=== PATIENT | male | born 1985 | race Caucasian/White ===

== ENCOUNTER 2019-01-08 10:50 | Emergency (ER) | payer SELFPAY ==
[~2019-01-08] VITALS: Ht 182.9 cm; Wt 81.6 kg
[~2019-01-08 10:50] MED LIST: CLON1TAB36 GT; CLON1TAB36 PO; FAMO20TA5 PO; SULF1TAB38 PO; TRM50T PO
[2019-01-08] MEDS ORDERED: LIDOCAINE 2% VISCOUS 15 ML UDC MM ONE (11:00)
--- NOTE | 2019-01-08 11:03 | ED EENT ---
History of Present Illness General Stated Complaint: DENTAL PAIN Source: patient Exam Limitations: no limitations History of Present Illness Date Seen by Provider: January 08, 2019 Time Seen by Provider: 11:01 Initial Comments To ER with bilateral upper dental pain for the past few days. He's already on amoxicillin he states. He is taking Tylenol for pain without much relief. States he has a dentist appointment in [place] in a few weeks. Timing/Duration: gradual Severity: moderate Location: dental Prearrival Treatment: over the counter meds, prescription meds Associated Symptoms: tooth pain Allergies and Home Medications Allergies Coded Allergies: No Known Drug Allergies (Unverified , 01/09/12) Home Medications Clonazepam 1 Mg Tablet, 2 MG GT QID, (Reported) Famotidine 20 Mg Tablet, 1 EACH PO BID Prescribed by: ANTONIA CAMARA on 09/21/13 0432 Patient Home Medication List Home Medication List Reviewed: Yes Review of Systems Review of Systems Constitutional: see HPI Eyes: No Symptoms Reported Ears: No Symptoms Reported Nose: no symptoms reported Mouth: see HPI, pain Throat: no symptoms reported Respiratory: no symptoms reported Cardiovascular: no symptoms reported Musculoskeletal: no symptoms reported Skin: no symptoms reported Neurological: No Symptoms Reported Hematologic/Lymphatic: No Symptoms Reported Immunological/Allergic: no symptoms reported Past Mojvdaw-Zuqwxr-Zmhzeb Hx Patient Social History Recent Foreign Travel: No Contact w/Someone Who Travel: No Immunizations Up To Date Tetanus Booster (TDap): Less than 5yrs Date of Pneumonia Vaccine: Jul 04, 2013 Date of Influenza Vaccine: Jul 04, 2013 Past Medical History Reproductive Disorders: No Sexually Transmitted Disease: No HIV/AIDS: No Anxiety Adverse Reaction/Blood Tranf: No Physical Exam Height, Weight, BMI Height: '" Weight: 150lbs. oz. 68.778929lz; BMI Method:Stated General Appearance: WD/WN, no apparent distress Eyes: bilateral eye normal inspection, bilateral eye PERRL, bilateral eye EOMI Ears: bilateral ear auricle normal, bilateral ear canal normal, bilateral ear TM normal Mouth/Throat: normal mouth inspection, pharynx normal, other (no fluctuant abscess) Neck: non-tender, full range of motion; No lymphadenopathy (R), No lymphadenopathy (L) Respiratory: chest non-tender, lungs clear, normal breath sounds Neurologic/Psychiatric: alert, normal mood/affect, oriented x 3 Skin: normal color, warm/dry Progress/Results/Core Measures Results/Orders My Orders Orders - JADE GRAHAM APRN Lidocaine 2% Viscous 15 Ml (Xylocaine Vi (01/08/19 11:00) Departure Communication (Admissions) No facial swelling, no abscess, he states that he is only been taking Tylenol for pain. Failed to mention that 2 days ago he was prescribed oxycodone 7.5 mg tablets out of [place]. I made an appointment for him with [facility] tomorrow at 1 PM Impression Primary Impression: Pain, dental Disposition: HOME, SELF-CARE Condition: Stable Departure-Patient Inst. Decision time for Depature: 11:05 Referrals: [facility] (PCP/Family) Primary Care Physician Patient Instructions: Fractured Tooth (DC) Add. Discharge Instructions: 1. Make an appointment for you with [facility] on and [place] tomorrow at 1 PM. 2. Once you run out of the oxycodone your prescribed 2 days ago, use Tylenol and Motrin. He should also use the topical lidocaine gel that we've provided here in the emergency room. Continue to take antibiotics. Do not miss the appointment tomorrow. JADE GRAHAM APRN January 08, 2019 11:03
[2019-01-08 11:10] VITALS: BP 140/91
--- OUTSIDE RECORDS SUMMARY | 2019-01-08 11:25 | XMS REPORT ---
Author Author Migration, Doctor Organization [facility] Address Unknown Phone Unavailable Care Team Providers Care Manager Research And Development Name Role Phone Migration, Doctor Unavailable Unavailable PROBLEMS Type Condition ICD9-CM Code [id number] Code Onset Dates Condition Status SNOMED Code Problem Anxiety state, unspecified 300.00 Active 495765940 Problem Mood disorder F39 Active 72213328 Problem Abdominal pain, unspecified site 789.00 Active 68216759 Problem Loss of weight 783.21 Active 625373611 Problem Other malaise and fatigue 780.79 Active 368537343 Problem 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 56583803 ALLERGIES No Information ENCOUNTERS Encounter Location Date Diagnosis [facility] [id number] [place] [address]881- 8191 Jul, Mood disorder F39 [facility] [id number] [place] [address] 86557- 2131 14 Dec, 2014 [facility] [id number] [place] [address] 56225- 8246 Dec, [facility] [id number] [place] [address] 77875- 5495 15 Oct, 2012 [facility] [id number] [place] [address] 96204- 4214 Jun, [facility] [id number] [place] [address] 31582- 6879 Jun, [facility] [id number] [place] [address] 25464- 3066 May, [facility] [id number] [place] [address] 99893- 4711 May, [facility] [id number] [place] [address] 33501- 3383 May, [facility] [place] [facility] [address] [id number] [place] [address] 7416 Apr, [facility] [place] [facility] [address] [id number] [place] [address] 7656 Apr, [facility] [place] [facility] [address] [id number] [place] [address] 5786 Apr, [facility] [place] [facility] [address] [id number] [place] [address] 5303 Apr, [facility] [place] [facility] [address] [id number] [place] [address] 7357 Mar, [facility] [place] [facility] [address] [id number] [place] [address] 1113 Mar, [facility] [place] [facility] [address] [id number] [place] [address] 5069 Feb, [facility] [place] [facility] [address] [id number] [place] [address] 5981 Feb, [facility] [place] [facility] [address] [id number] [place] [address] 1532 January, [facility] [place] [facility] [address] [id number] [place] [address] 1066 January, [facility] [place] [facility] [address] [id number] [place] [address] 7109 Dec, [facility] [place] [facility] [address] [id number] [place] [address] 2546 Nov, [facility] [place] [facility] [address] [id number] [place] [address] 2543 Nov, [facility] [place] [facility] [address] [id number] [place] [address]- 1266 Oct, [facility] [place] [facility] [address] [id number] [place] [address] 2546 Sep, [facility] [place] [facility] [address] [id number] [address] 9364 16 Sep, 2011 [facility] [place] [facility] [address] [id number] [place] [address]- 5342 Sep, [facility] [place] [facility] [address] [id number] [place] [address] Sep, [facility] [place] [facility] [address] [id number] [place] [address]- 3387 Aug, [facility] [place] [facility] [address] [id number] [place] [address] 6647 Aug, [facility] [place] [facility] [address] [id number] [place] [address]- 0989 Jul, [facility] [place] [facility] [address] [id number] [place] [address]- 9120 Jul, [facility] [place] [facility] [address] [id number] [place] [address]- 8980 Jun, [facility] [place] [facility] [address] [id number] [place] [address]- 9221 Jun, [facility] [place] [facility] [address] [id number] [place] [address]- 3929 Jun, [facility] [place] [facility] [address] [id number] [place] [address]- 0863 January, [facility] [place] [facility] [address] [id number] [place] [address] 5864 Aug, [facility] [place] [facility] [address] [id number] [place] [address]- 1809 Aug, [facility] [place] [facility] [address] [id number] [place] [address]- 2806 Jul, [facility] [place] [facility] [address] [id number] [place] [address] Jul, [facility] [place] [facility] [address] [id number] [place] [address]- 2642 Jun, [facility] [place] [facility] [address] [facility] [id number] [place] [address]- 2546 15 May, 2010 [facility] [address] [address] 8276 Aug, [facility] [address] [id number] [address] 2546 Jul, [facility] [address] [address] 7605 Jul, [facility] [address] [id number] [address] 2698 Jun, IMMUNIZATIONS No Known Immunizations SOCIAL HISTORY Never Assessed REASON FOR VISIT EMR-[facility] PLAN OF CARE VITAL SIGNS MEDICATIONS Unknown Medications RESULTS No Results PROCEDURES No Known procedures INSTRUCTIONS MEDICATIONS ADMINISTERED No Known Medications
--- OUTSIDE RECORDS SUMMARY | 2019-01-08 11:25 | XMS REPORT ---
Author Author Migration, Doctor Organization [facility] Address Unknown Phone Unavailable Care Team Providers Care Corporate Development Analyst Name Role Phone Migration, Doctor Unavailable Unavailable PROBLEMS Type Condition ICD9-CM Code XRY48-BN Code Onset Dates Condition Status SNOMED Code Problem Anxiety state, unspecified 300.00 Active 254222275 Problem Mood disorder F39 Active 89892388 Problem Abdominal pain, unspecified site 789.00 Active 42709552 Problem Loss of weight 783.21 Active 961911485 Problem Other malaise and fatigue 780.79 Active 300638630 Problem 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 [id number] ALLERGIES No Information ENCOUNTERS Encounter Location Date Diagnosis [facility] [id number] [place] [address] 09214- 9699 Jul, Mood disorder F39 [facility] [id number] [place] [address] 21279- 9017 14 Dec, 2014 [facility] [id number] [place] [address] 63045- 7631 Dec, [facility] [id number] [place] [address] 59002- 7071 15 Oct, 2012 [facility] [address] [id number] [address]- 9335 Jun, [facility] [id number] [place] [address] 90985- 2041 Jun, [facility] [id number] [place] [address] 97891- 0121 May, [facility] [id number] [place] [address] 97756- 3464 May, [facility] [id number] [place] [address] 03046- 6948 May, [facility] [place] [facility] [address] [id number] [place] [address]- 4353 Apr, [facility] [place] [facility] [address] [id number] [place] [address]- 5341 Apr, [facility] [place] [facility] [address] [id number] [place] [address]- 0974 Apr, [facility] [place] [facility] [address] [id number] [place] [address]- 6672 Apr, [facility] [place] [facility] [address] [id number] [place] [address]- 6111 Mar, [facility] [place] [facility] [address] [id number] [place] [address]- 6691 Mar, [facility] [place] [facility] [address] [id number] [place] [address]- 3082 Feb, [facility] [place] [facility] [address] [id number] [place] [address]- 9507 Feb, [facility] [place] [facility] [address] [id number] [place] [address]- 2197 January, [facility] [place] [facility] [address] [id number] [place] [address]- 9006 January, [facility] [place] [facility] [address] [id number] [place] [address]- 9716 Dec, [facility] [place] [facility] [address] [id number] [place] [address]- 2546 Nov, [facility] [place] [facility] [address] [id number] [place] [address] 2547 Nov, [facility] [place] [facility] [address] [id number] [place] [address]- 4146 Oct, [facility] [place] [facility] [address] [id number] [place] [address]- 2546 Sep, [facility] [place] [facility] [address] [id number], [place] [address]- 1474 16 Sep, 2011 [facility] [place] [facility] [address] [id number] [place] [address]- 6190 Sep, [facility] [place] [facility] [address] [id number] [place] 3912 Sep, [facility] [place] [facility] [address] [id number] [place] [address]- 2273 Aug, [facility] [place] [facility] [address] [id number] [place] [address]- 6235 Aug, [facility] [place] [facility] [address] [id number] [place] [address]- 6902 Jul, [facility] [place] [facility] [address] [id number] [place] [address]- 7994 Jul, [facility] [place] [facility] [address] [id number] [place] [address]- 0565 Jun, [facility] [place] [facility] [address] [id number] [place] [address]- 9846 Jun, [facility] [place] [facility] [address] [id number] [place] [address]- 7917 Jun, [facility] [place] [facility] [address] [id number] [place] [address]- 3582 January, [facility] [place] [facility] [address] [id number], [place] [address]- 4978 Aug, [facility] [place] [facility] [address] [id number] [place] [address]- 8102 Aug, [facility] [place] [facility] [address] [id number] [place] [address]- 4988 Jul, [facility] [place] [facility] [address] [id number] [place] 7569 Jul, [facility] [place] [facility] [address] [id number] [place] [address]- 0908 Jun, [facility] [place] [facility] [address] [facility] [id number] [place] [address]- 2546 15 May, 2010 [facility] [address] [address]- 5086 Aug, [facility] [id number] [address]- 2546 Jul, [facility] [address] [address]- 3646 Jul, [facility] [id number], [place] [address]- 1853 Jun, IMMUNIZATIONS No Known Immunizations SOCIAL HISTORY Never Assessed REASON FOR VISIT EMR-[facility] PLAN OF CARE VITAL SIGNS MEDICATIONS Unknown Medications RESULTS No Results PROCEDURES No Known procedures INSTRUCTIONS MEDICATIONS ADMINISTERED No Known Medications
--- OUTSIDE RECORDS SUMMARY | 2019-01-08 11:26 | XMS REPORT | Referral Summary ---
Author Organization Unknown Address Unknown Phone Unavailable Care Team Providers Care Meat Cutting Block Repairer Name Role Phone No PCP, Pt States PCP Encounter VC Date(s): 10/11/14 - 10/12/14 [facility] [address] [place] [address] [phone] Discharge Diagnosis: Fall from standing Discharge Diagnosis: Accidental fall Discharge Diagnosis: Tentorial and parafalcine subdural hematoma with basilar skull fracture and brief loss of consciousness Discharge Diagnosis: Polysubstance abuse, UDS + for benzos & cannabis Discharge Diagnosis: Acute alcohol intoxication Discharge Disposition: Home or Self Care Attending Physician: Samm Barba DO Admitting Physician: Samm Barba DO Vital Signs Most recent to 1 oldest [Reference Range]: Temperature Oral 36.8 degC [35.8-37.3 degC] (10/11/14 9:56 PM) Temperature Temporal 37.1 degC Artery [36.3-37.8 (10/12/14 12:00 PM) degC] Apical Heart Rate 78 bpm [60-100 bpm] (10/12/14 1:10 AM) Peripheral Pulse 82 bpm Rate [60-100 bpm] (10/11/14 10:10 PM) Heart Rate Monitored 99 bpm [60-100 bpm] (10/12/14 3:00 PM) Respiratory Rate 20 br/min [14-20 br/min] (10/12/14 3:00 PM) Blood Pressure 141/94 mmHg [90-140/60-90 mmHg] *HI* (10/12/14 3:00 PM) Mean Arterial 100 mmHg Pressure, Cuff (10/12/14 1:00 PM) Most recent to 1 oldest [Reference Range]: SpO2 95 % (10/12/14 3:00 PM) Problem List Condition Effective Dates Status Health Status Informant Acute Resolved pain(Confirmed) At risk of pressure Resolved sore(Confirmed) Impaired skin Resolved integrity(Confirmed) 1 Knowledge Resolved deficit(Confirmed)2 Tissue perfusion Resolved alteration(Confirmed )3 Tobacco Active patient user(Confirmed) 1Problem added automatically by system based on initiation of Impaired Skin Integrity Plan of Care 2Problem added automatically by system based on initiation of Knowledge Deficit Plan of Care 3Problem added automatically by system based on initiation of Tissue Perfusion Cerebral Plan of Care Allergies, Adverse Reactions, Alerts No Known Medication Allergies Medications ALPRAZolam 2 mg, Oral, QID, 0 Refill(s) Start Date: 10/11/14 Status: Ordered Colace 100 mg oral capsule 1 caps, Oral, BID, 0 Refill(s) Start Date: 10/12/14 Status: Ordered Keppra 500 mg oral tablet 1 tabs, Oral, BID, # 14 tabs, 0 Refill(s), other reason (Rx) Start Date: 10/12/14 Status: Ordered Percocet 5/325 oral tablet 1-2 tabs, Oral, q4hr, Pain Severe (7-10), # 30 tabs, 0 Refill(s), other reason ( Rx) Start Date: 10/12/14 Stop Date: 10/31/14 Status: Ordered Results Hematology Most recent to 1 oldest [Reference Range]: WBC [4.8-10.8 K/uL] 11.5 K/uL *HI* (10/12/14 4:00 AM) RBC [4.60-6.20 M/uL] 4.60 M/uL (10/12/14 4:00 AM) Hgb [14.0-18.0 15.2 gm/dL gm/dL] (10/12/14 4:00 AM) Hct [42.0-52.0 %] 43.4 % (10/12/14 4:00 AM) MCV [82.0-99.0 fL] 94.3 fL (10/12/14 4:00 AM) MCH [27.0-32.0 pg] 33.0 pg *HI* (10/12/14 4:00 AM) MCHC [32.0-36.0 35.0 gm/dL gm/dL] (10/12/14 4:00 AM) RDW [11.5-14.5 %] 15.0 % *HI* (10/12/14 4:00 AM) Platelet [150-400 227 K/uL K/uL] (10/12/14 4:00 AM) MPV [9.4-12.3 fL] 9.6 fL (10/12/14 4:00 AM) Immature 0.3 % Granulocytes (10/12/14 4:00 AM) [0.0-1.0 %] Neutrophils [51-75 85 % %] *HI* (10/12/14 4:00 AM) Lymphocytes [20-46 10 % %] *LOW* (10/12/14 4:00 AM) Monocytes [4-11 %] 5 % (10/12/14 4:00 AM) Eosinophils [0-4 %] 0 % (10/12/14 4:00 AM) Basophils [0-2 %] 0 % (10/12/14 4:00 AM) Neutro Absolute 9.83 THOUS [1.90-7.00 THOUS] *HI* (10/12/14 4:00 AM) Lymph Absolute 1.10 THOUS [0.80-3.30 THOUS] (10/12/14 4:00 AM) [place] Absolute 0.54 THOUS [0.30-1.00 THOUS] (10/12/14 4:00 AM) Eos Absolute 0.01 THOUS [0.00-0.50 THOUS] (10/12/14 4:00 AM) Baso Absolute 0.02 THOUS [0.00-0.20 THOUS] (10/12/14 4:00 AM) Nucleated RBC 0.0 /100 WBC Automated [0 /100 (10/12/14 4:00 AM) WBC] Chemistry Most recent to 1 oldest [Reference Range]: Sodium Lvl [136-144 138 mEq/L mEq/L] (10/12/14 4:00 AM) Potassium Lvl 3.9 mEq/L [3.6-5.1 mEq/L] (10/12/14 4:00 AM) Chloride [99-109 105 mEq/L mEq/L] (10/12/14 4:00 AM) CO2 [22-32 mEq/L] 23 mEq/L (10/12/14 4:00 AM) AGAP [3-20] 10 (10/12/14 4:00 AM) BUN [4-20 mg/dL] 8 mg/dL (10/12/14 4:00 AM) Glucose Lvl [70-100 132 mg/dL mg/dL] *HI* (10/12/14 4:00 AM) Creatinine Lvl 0.74 mg/dL [0.64-1.27 mg/dL] (10/12/14 4:00 AM) eGFR [>60] >60 2 (10/12/14 4:00 AM) Calcium Lvl 8.9 mg/dL [8.6-10.0 mg/dL] (10/12/14 4:00 AM) Albumin Lvl [3.5-4.8 3.7 gm/dL gm/dL] (10/11/14 10:43 PM) Total Protein 6.4 gm/dL [6.1-7.9 gm/dL] (10/11/14 10:43 PM) Globulin [1.9-4.3 2.7 gm/dL gm/dL] (10/11/14 10:43 PM) ALT [17-63 unit/L] 25 unit/L (10/11/14 10:43 PM) AST [15-41 unit/L] 30 unit/L (10/11/14 10:43 PM) Alk Phos [26-104 79 unit/L unit/L] (10/11/14 10:43 PM) Bili Total [0.2-1.2 0.5 mg/dL 1 mg/dL] (10/11/14 10:43 PM) Magnesium Lvl 2.0 mg/dL [1.8-2.5 mg/dL] (10/12/14 4:00 AM) Blood Glucose, 137 mg/dL Capillary [70-100 *HI* mg/dL] (10/12/14 1:22 AM) 1Result Comment: Naproxen, specifically the metabolite O-desmethylnaproxen, may cause spurious elevation in Total Bilirubin levels. 2Result Comment: Multiply eGFR results by 1.21 for race. Toxicology Most recent to 1 oldest [Reference Range]: Ethanol Lvl 292 mg/dL (10/11/14 10:43 PM) U Amphetamine Scrn Negative (10/11/14 11:38 PM) U Cocaine Scrn Negative (10/11/14 11:38 PM) U Cannab Scrn Positive *ABN* (10/11/14 11:38 PM) U Opiate Scrn Negative (10/11/14 11:38 PM) U PCP Scrn Negative (10/11/14 11:38 PM) U Benzodiazepine Positive Scrn *ABN* (10/11/14 11:38 PM) U Barbiturate Scrn Negative (10/11/14 11:38 PM) Methadone Lvl Negative (10/11/14 11:38 PM) Tricyclics Not Detected 3 (10/11/14 11:38 PM) 3Result Comment: Cut-off concentrations: Amphetamines: 1000 ng/mL Cocaine: 300 ng/mL Cannabinoid: 50 ng/mL Opiate: 300 ng/mL Phencyclidine (PCP): 25 ng/mL Benzodiazepine: 200 ng/mL Barbiturate: 200 ng/mL Methadone: 300 ng/mL Tricyclic: 300 ng/mL The urine drug screen assays are qualitative screens. A more specific GC/MS method must be performed to obtain a confirmed analytical result. Unconfirmed screening results must not be used for non-medical purposes(e.g. employment or legal testing) Immunizations No data available for this section Procedures No data available for this section Social History Social History Type Response Smoking Status Current every day smoker Assessment and Plan No data available for this section
--- OUTSIDE RECORDS SUMMARY | 2019-01-08 11:26 | XMS REPORT ---
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 30593835 Problem Other malaise and fatigue 780.79 Active [id number] ALLERGIES No Known Allergies ENCOUNTERS Encounter Location Date Diagnosis [facility] [id number] [place] [address]- [address] Jul, Mood disorder F39 [facility] [id number] [place] [address]- [address]273 Dec, [facility] [id number] [place] [address]- 9719 Dec, [facility] [address] [address] Oct, [facility] [id number] [place] [address]- 8773 Jun, [facility] [id number] [place] [address]- 8403 Jun, [facility] [id number] [place] [address]- 6001 May, [facility] [address] [address] May, [facility] [id number] [place] [address] May, [facility] [address] [id number] [place] [address] Apr, [facility] [address] [id number] [place] [address] Apr, [facility] [address] [id number] [place] [address] 8068 Apr, [facility] [address] [id number] [place] [address] Apr, [facility] [address] [id number] [place] [address] 1136 Mar, [facility] [address] [id number] [place] [address] 7636 Mar, [facility] [address] [id number] [place] [address] 7287 Feb, [facility] [address] [id number] [place] [address] 6149 Feb, [facility] [address] [id number] [place] [address] 9295 January, [facility] [address] [id number] [place] [address] 0647 January, [facility] [address] [id number] [place] [address] 1346 Dec, [facility] [address] [id number] [place] [address] 2546 Nov, [facility] [place] [facility] [address] [id number] [place] [address] 8523 Nov, [facility] [place] [facility] [address] [id number] [place] [address] 2546 Oct, [facility] [address] [id number] [place] [address] 4877 Sep, [facility] [place] [facility] [address] [id number] [place] [address] 6817 16 Sep, 2011 [facility] [place] [facility] [address] [id number] [place] [address] 9967 Sep, [facility] [place] [facility] [address] [id number] [place] [address] Sep, [facility] [place] [facility] [address] [id number] [place] [address] 9374 Aug, [facility] [place] [facility] [address] [id number] [place] [address]- 3162 Aug, [facility] [place] [facility] [address] [id number] [place] [address] 6222 Jul, [facility] [place] [facility] [address] [id number] [place] [address]- 2556 Jul, [facility] [place] [facility] [address] [id number] [place] [address]- 3300 Jun, [facility] [place] [facility] [address] [id number] [place] [address] 4127 Jun, [facility] [place] [facility] [address] [id number] [place] [address] 90[address] Jun, [facility] [place] [facility] [address] [id number] [place] [address] 2765 January, [facility] [place] [facility] [address] [id number] [place] [address] 8381 Aug, [facility] [place] [facility] [address] [id number] [place] [address]- 5784 Aug, [facility] [place] [facility] [address] [id number] [place] [address] 8518 Jul, [facility] [place] [facility] [address] [id number] [place] [address]- 3929 Jul, [facility] [place] [facility] [address] [id number] [place] [address] 3266 Jun, [facility] [address] [facility] [id number] [place] [address] 76[address] May, [facility] [id number] [address] Aug, [facility] [address] [facility] [id number] [place] [address] 8[address] Jul, [facility] [id number] [address] 8808 Jul, [facility] [address] [facility] [id number] [place] [address] 3[address] Jun, IMMUNIZATIONS No Known Immunizations SOCIAL HISTORY Never Assessed REASON FOR VISIT Longterm PLAN OF CARE VITAL SIGNS MEDICATIONS Medication Instructions Dosage Frequency Start Date End Date Duration Status HydrOXYzine HCl 25 MG Orally 2 times a day 1 tablet as needed 12h 13 Jul, 2018 30 day(s) Active RESULTS No Results PROCEDURES No Known procedures INSTRUCTIONS MEDICATIONS ADMINISTERED No Known Medications
--- OUTSIDE RECORDS SUMMARY | 2019-01-08 11:26 | XMS REPORT ---
Author Author Migration, Doctor Organization 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 [id number] ALLERGIES No Information ENCOUNTERS Encounter Location Date Diagnosis [facility] [place] [id number] [place] [address]89- [address]013 Jul, Mood disorder F39 [facility] [place] [id number] [place] [address]- 8817 14 Dec, 2014 [facility] [place] [id number] [place] [address] 87378- 0480 Dec, [facility] [place] [id number] [place] [address] 94410- 2389 15 Oct, 2012 [facility] [place] [id number] [place] [address] 73640- 1499 Jun, [facility] [place] [id number] [place] [address] 78843- 8877 Jun, [facility] [place] [id number] [place] [address] 91056- 2570 May, [facility] [place] [id number] [place] [address] 02379- 6344 May, [facility] [place] [id number] [place] [address] 73712- 3358 May, [facility] [place] [facility] [address] [id number] [place] [address]- 9117 Apr, [facility] [place] [facility] [address] [id number] [place] [address]- 0811 Apr, [facility] [place] [facility] [address] [id number] [place] [address]- 9140 Apr, [facility] [place] [facility] [address] [id number] [place] [address]- 0010 Apr, [facility] [place] [facility] [address] [id number] [place] [address]- 2160 Mar, [facility] [place] [facility] [address] [id number] [place] [address]- 6833 Mar, [facility] [place] [facility] [address] [id number] [place] [address]- 8795 Feb, [facility] [place] [facility] [address] [id number] [place] [address]- 1469 Feb, [facility] [place] [facility] [address] [id number] [place] [address]- 7648 January, [facility] [place] [facility] [address] [id number] [place] [address]- 8846 January, [facility] [place] [facility] [address] [id number] [place] [address]- 8033 Dec, [facility] [place] [facility] [address] [id number] [place] [address]- 2546 Nov, [facility] [place] [facility] [address] [id number] [place] [address] 2547 Nov, [facility] [place] [facility] [address] [id number] [place] [address]- 7286 Oct, [facility] [place] [facility] [address] [id number] [place] [address]- 2546 Sep, [facility] [place] [facility] [address] [id number] [address]- 3777 16 Sep, 2011 [facility] [place] [facility] [address] [id number] [place] [address]- 4754 Sep, [facility] [place] [facility] [address] [id number] [place] [address]67 Sep, [facility] [place] [facility] [address] [id number] [place] [address]- 3916 Aug, [facility] [place] [facility] [address] [id number] [place] [address]- 4380 Aug, [facility] [place] [facility] [address] [id number] [place] [address]- 1946 Jul, [facility] [place] [facility] [address] [id number] [place] [address]- 4775 Jul, [facility] [place] [facility] [address] [id number] [place] [address]- 0816 Jun, [facility] [place] [facility] [address] [id number] [place] [address]- 0093 Jun, [facility] [place] [facility] [address] [id number] [place] [address]- 4041 Jun, [facility] [place] [facility] [address] [id number] [place] [address]- 7137 January, [facility] [place] [facility] [address] [id number] [address]- 7868 Aug, [facility] [place] [facility] [address] [id number] [place] [address]- 8166 Aug, [facility] [place] [facility] [address] [id number] [place] [address]- 2271 Jul, [facility] [place] [facility] [address] [id number] [place] Jul, [facility] [place] [facility] [address] [id number] [place] [address]- 6397 Jun, [facility] [place] [facility] [address] [facility] [id number] [place] [address]- 2546 15 May, 2010 [facility] [place] [id number] [address]- 6386 Aug, [facility] [place] [address] [id number] [address]- 2546 Jul, [facility] [place] [address] [id number] [address]- 7435 Jul, [facility] [place] [address] [facility] [id number] [address]- 2774 Jun, IMMUNIZATIONS No Known Immunizations SOCIAL HISTORY Never Assessed REASON FOR VISIT [facility] PLAN OF CARE VITAL SIGNS MEDICATIONS Medication Instructions Dosage Frequency Start Date End Date Duration Status Klonopin 2 mg 1 Tablet by Oral route oral 3 times per dayFOR ANXIETY Apr, Active RESULTS No Results PROCEDURES No Known procedures INSTRUCTIONS MEDICATIONS ADMINISTERED No Known Medications
--- OUTSIDE RECORDS SUMMARY | 2019-01-08 11:26 | XMS REPORT | Referral Summary ---
Author Organization Unknown Address Unknown Phone Unavailable Encounter VC CM [id number] Date(s): 10/15/14 - 10/15/14 Via [facility] [address] [place] [address] Discharge Diagnosis: Elevated liver enzymes Discharge Diagnosis: Post concussion syndrome Discharge Diagnosis: Accidental overdose Discharge Disposition: Other Healthcare Facility Attending Physician: Raffaele Stewart MD Admitting Physician: Raffaele Stewart MD Vital Signs Most recent to 1 oldest [Reference Range]: Temperature Oral 36.6 degC [35.8-37.3 degC] (10/15/14 11:43 AM) Peripheral Pulse 50 bpm Rate [60-100 bpm] *LOW* (10/15/14 6:05 PM) Heart Rate Monitored 50 bpm [60-100 bpm] *LOW* (10/15/14 6:10 PM) Respiratory Rate 18 br/min [14-20 br/min] (10/15/14 6:05 PM) Blood Pressure 118/74 mmHg [90-140/60-90 mmHg] (10/15/14 6:10 PM) Mean Arterial 90 mmHg Pressure, Cuff (10/15/14 6:10 PM) Most recent to 1 oldest [Reference Range]: SpO2 98 % (10/15/14 6:10 PM) Problem List Condition Effective Dates Status Health Status Informant Acute Resolved pain(Confirmed) ETOH Active patient abuse(Confirmed) At risk of pressure Resolved sore(Confirmed) Impaired skin Resolved integrity(Confirmed) 1 Knowledge Resolved deficit(Confirmed)2 Opiate abuse, Active patient continuous(Confirmed ) Tissue perfusion Resolved alteration(Confirmed )3 Tobacco Active [...] reason (Rx) Start Date: 10/12/14 Status: Ordered oxyCODONE 5 mg oral tablet 0.5 tabs, Oral, q6hr, as needed for pain, # 8 tabs, 0 Refill(s) Start Date: 10/15/14 Stop Date: 10/18/14 Status: Ordered Percocet 5/325 oral tablet 1-2 tabs, Oral, q4hr, Pain Severe (7-10), # 30 tabs, 0 Refill(s), other reason ( Rx) Start Date: 10/12/14 Stop Date: 10/31/14 Status: Ordered Results Hematology Most recent to 1 oldest [Reference Range]: WBC [4.8-10.8 K/uL] 5.7 K/uL (10/15/14 3:23 PM) RBC [4.60-6.20 M/uL] 4.86 M/uL (10/15/14 3:23 PM) Hgb [14.0-18.0 15.7 gm/dL gm/dL] (10/15/14 3:23 PM) Hct [42.0-52.0 %] 45.5 % (10/15/14 3:23 PM) MCV [82.0-99.0 fL] 93.6 fL (10/15/14 3:23 PM) MCH [27.0-32.0 pg] 32.3 pg *HI* (10/15/14 3:23 PM) MCHC [32.0-36.0 34.5 gm/dL gm/dL] (10/15/14 3:23 PM) RDW [11.5-14.5 %] 14.6 % *HI* (10/15/14 3:23 PM) Platelet [150-400 206 K/uL K/uL] (10/15/14 3:23 PM) MPV [9.4-12.3 fL] 9.6 fL (10/15/14 3:23 PM) Immature 0.2 % Granulocytes (10/15/14 3:23 PM) [0.0-1.0 %] Neutrophils [51-75 64 % %] (10/15/14 3:23 PM) Lymphocytes [20-46 21 % %] (10/15/14 3:23 PM) Monocytes [4-11 %] 11 % (10/15/14 3:23 PM) Eosinophils [0-4 %] 4 % (10/15/14 3:23 PM) Basophils [0-2 %] 0 % (10/15/14 3:23 PM) Neutro Absolute 3.69 THOUS [1.90-7.00 THOUS] (10/15/14:23 PM) Lymph Absolute 1.20 THOUS [0.80-3.30 THOUS] (10/15/14 3:23 PM) [place] Absolute 0.60 THOUS [0.30-1.00 THOUS] (10/15/14:23 PM) Eos Absolute 0.22 THOUS [0.00-0.50 THOUS] (10/15/14:23 PM) Baso Absolute 0.02 THOUS [0.00-0.20 THOUS] (10/15/14:23 PM) Nucleated RBC 0.0 /100 WBC Automated [0 /100 (10/15/14: PM) WBC] Coagulation Most recent to 1 oldest [Reference Range]: INR [0.9-1.2] 1.0 (10/15/14:23 PM) Chemistry Most recent to 1 oldest [Reference Range]: Sodium Lvl [136-144 136 mEq/L mEq/L] (10/15/14:23 PM) Potassium Lvl 3.7 mEq/L [3.6-5.1 mEq/L] (10/15/14:23 PM) Chloride [99-109 103 mEq/L mEq/L] (10/15/14:23 PM) CO2 [22-32 mEq/L] 25 mEq/L (10/15/14 3:23 PM) AGAP [3-20] 8 (10/15/14:23 PM) BUN [4-20 mg/dL] 12 mg/dL (10/15/14 3:23 PM) Glucose Lvl [70-100 97 mg/dL mg/dL] (10/15/14 3:23 PM) Creatinine Lvl 0.89 mg/dL [0.64-1.27 mg/dL] (10/15/14 3:23 PM) eGFR [>60] >60 2 (10/15/14 3:23 PM) Calcium Lvl 9.4 mg/dL [8.6-10.0 mg/dL] (10/15/14 3:23 PM) Albumin Lvl [3.5-4.8 4.2 gm/dL gm/dL] (10/15/14 3:23 PM) Total Protein 7.4 gm/dL [6.1-7.9 gm/dL] (10/15/14 3:23 PM) Globulin [1.9-4.3 3.2 gm/dL gm/dL] (10/15/14 3:23 PM) ALT [17-63 unit/L] 146 unit/L *HI* (10/15/14 3:23 PM) AST [15-41 unit/L] 195 unit/L *HI* (10/15/14 3:23 PM) Alk Phos [26-104 169 unit/L unit/L] *HI* (10/15/14 3:23 PM) Bili Total [0.2-1.2 0.9 mg/dL 1 mg/dL] (10/15/14 3:23 PM) 1Result Comment: Naproxen, specifically the metabolite O-desmethylnaproxen, may cause spurious elevation in Total Bilirubin levels. 2Result Comment: Multiply eGFR results by 1.21 for race. Therapeutic Drug Monitoring Most recent to 1 oldest [Reference Range]: Acetaminophen Lvl <10 mcg/mL [10-30 mcg/mL] (10/15/14 3:23 PM) Salicylate Lvl [0-30 <4 mg/dL mg/dL] (10/15/14 3:23 PM) Toxicology Most recent to 1 oldest [Reference Range]: Ethanol Lvl Not Detected (10/15/14 3:23 PM) U Amphetamine Scrn Not Detected (10/15/14 3:23 PM) U Cocaine Scrn Not Detected (10/15/14 3:23 PM) U Cannab Scrn Positive *ABN* (10/15/14 3:23 PM) U Opiate Scrn Not Detected (10/15/14 3:23 PM) U PCP Scrn Not Detected (10/15/14 3:23 PM) U Benzodiazepine Positive Scrn *ABN* (10/15/14 3:23 PM) U Barbiturate Scrn Not Detected (10/15/14 3:23 PM) Methadone Lvl Not Detected (10/15/14 3:23 PM) Tricyclics Not Detected 3 (10/15/14 3:23 PM) 3Result Comment: Cut-off concentrations: Amphetamines: 1000 [...]
--- OUTSIDE RECORDS SUMMARY | 2019-01-08 11:27 | XMS REPORT | Continuity of Care Document ---
Author Organization Unknown Address Unknown Allergies Active Description Code Type Severity Reaction Onset Reported/Identified Relationship to Patient Clinical Status Yes No Known Medication Allergies NKMA N/A N/A 10/11/2014 Yes No Known Allergies No Known Allergies Drug Allergy Unknown N/A 2014 Medications Medication Packaging Start Date Stop Date Route Dosage Sig ALPRAZolam(ALPRAZolam) 2014 Oral 2 mg 2 mg, Oral, QID thiamine(thiamine) 1 mL 10/11/2014 10/11/2014 IV Push 100 mg 100 mg, IV Push, Once HYDROcodone-acetaminophen(HYDROcodone-acetaminophen 5 mg-325 mg oral tablet) 1 tabs 10/12/20142014 Oral 1 tabs, Oral, q4hr, PRN : Pain Moderate (4-6) Lactated Ringers Injection(Lactated Ringers Injection 1,000 mL) 1,000 mL 10/12/2014 10/12/2014 IV 100 mL/hr, IV docusate(Colace) 1 caps 10/12/2014 10/12/2014 Oral 100 mg 100 mg, Oral, BID ondansetron(Zofran) 2 mL 201410/12/2014 IV Push 4 mg 4 mg, IV Push, q6hr, PRN: Nausea HYDROmorphone(HYDROmorphone) 0.25 mL 10/12/2014 10/12/2014 IV Push 0.5 mg 0.5 mg, IV Push, q2hr, PRN: Pain Severe (7-10) diphenhydrAMINE(Benadryl) 1 tabs 10/12/2014 Oral 25 mg 25 mg, Oral, q6hr, PRN: Pruritus/Itching levETIRAcetam(Keppra) 5 mL 201410/12/2014 IV Piggyback 500 mg 500 mg, 5 mL, 400 mL/hr, IV Piggyback, q12hr ondansetron(Zofran) 1 tabs 201410/12/2014 Oral 4 mg 4 mg, Oral, q6hr, PRN: Nausea folic acid(folic acid) 1 tabs 10/1210/12/2014 Oral 1 mg 1 mg, Oral, Daily LORazepam(Ativan) 0.5 mL 201410/12/2014 IV Push 1 mg 1 mg, IV Push, q5min, PRN: Seizure promethazine(Phenergan) 1 mL 201410/12/2014 IntraMuscular 25 mg 25 mg, IntraMuscular, q4hr, PRN: Nausea haloperidol(Haldol) 0.1 mL 201410/12/2014 IV Push 0.5 mg 0.5 mg, IV Push, q2hr, PRN: Other (See Comment) thiamine(thiamine) 1 tabs 201410/12/2014 Oral 100 mg 100 mg, Oral, Daily pneumococcal 23-polyvalent vaccine(pneumococcal 23-polyvalent vaccine) 0.5 mL 10/12/20142014 IntraMuscular 0.5 mL, IntraMuscular, As Indicated oxyCODONE-acetaminophen(Percocet 5/325 oral tablet) 10/12/2014 10/12/2014 Oral 1-2 tabs, Oral, q4hr, PRN: Pain Moderate (4-6) docusate(Colace 100 mg oral capsule) 1 caps 10/12/2014 Oral 100 mg 1 caps, Oral, BID oxyCODONE-acetaminophen(Percocet 5/325 oral tablet) 10/12/2014 10/31/2014 Oral 1-2 tabs, Oral, q4hr, 30 tabs, PRN: Pain Severe (7-10 ) levETIRAcetam(Keppra 500 mg oral tablet) 1 tabs 10/12/2014 Oral 500 mg 1 tabs, Oral, BID, 14 tabs metoclopramide(metoclopramide) 2 mL 10/15/2014 10/15/2014 IV Push 10 mg 10 mg, IV Push, Once Sodium Chloride 0.9%(Sodium Chloride 0.9% Bolus) 1,000 mL 10/15/2014 10/15/2014 Bolus IV 1,000 mL, Bolus IV, Once oxyCODONE(oxyCODONE 5 mg oral tablet) 0.5 tabs 10/15/2014 10/18/2014 Oral 2.5 mg 0.5 tabs, Oral, q6hr, 8 tabs, PRN: as needed for pain Problems Date Dx Coded Attending Type Code Diagnosis Diagnosed By 03/20/2008 296.90 Mood Disorder 04/02/2008 300.00 Anxiety 04/02/2008 305.20 Sa Cannabis Abuse 04/03/2008 V58.69 MEDICATION HIGH RISK 05/01/2008 314.01 ATTENTION DEFICIT WITH HYPERACTIVITY 06/29/2009 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), SECONDARY 07/19/2009 V69.2 High-risk Sexual Behavior 04/26/2010 477.9 Rhinitis 04/26/2010 786.2 Cough 07/06/2010 847.2 Sprain Lumbar Region 01/18/2011 535.50 Gastritis Unspec 02/02/2011 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 02/02/2011 550.90 Unilateral Or Unspecified Inguinal Hernia Without Obstruction Or Gangrene 05/29/2011 789.07 Abdominal Pain Generalized 06/09/2011 564.1 IRRITABLE BOWEL SYNDROME 11/27/2011 783.21 LOSS OF WEIGHT 11/27/2011 789.00 ABDOMINAL PAIN UNSPECIFIED SITE 03/11/2012 345.10 GENERALIZED CONVULSIVE EPILEPSY WITHOUT INTRACTABLE EPILEPSY 05/01/2012 300.00 ANXIETY STATE UNSPECIFIED 05/15/2012 780.79 fatigue 10/12/2014 Samm Barba DO Admitting 348.89 10/16/2014 Raffaele Stewart Edmundo Final 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 10/16/2014 Raffaele Stewart Edmundo Final 432.1 SUBDURAL HEMORRHAGE 10/16/2014 Raffaele Stewart Edmundo Final 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 10/16/2014 Raffaele Stewart Iban Final 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.2 CHRONIC ETHMOIDAL SINUSITIS 10/16/2014 Raffaele Stewart Edmundo Reason 784.0 HEADACHE 10/16/2014 Raffaele Stewart Edmundo Final 790.5 OTHER NONSPECIFIC ABNORMAL SERUM ENZYME LEVELS 10/16/2014 Raffaele Stewart Edmundo Final 965.09 POISONING BY OTHER OPIATES AND RELATED NARCOTICS 10/16/2014 Raffaele Stewart Iban Final E850.2 ACCIDENTAL POISONING BY OTHER OPIATES AND RELATED NARCOTICS 10/20/2014 Samm Barba DO Final 305.00 ALCOHOL ABUSE, UNSPECIFIED DRINKING BEHAVIOR 10/20/2014 Samm Barba DO Final 305.20 CANNABIS ABUSE, UNSPECIFIED USE 10/20/2014 Samm Barba DO Final 305.40 Sedative, hypnotic or anxiolytic abuse, unspecified 10/20/2014 Samm Barba DO Final 348.89 Other Conditions of Brain 10/20/2014 Samm Barba DO Final 852.21 SUBDURAL HEMORRHAGE FOLLOWING INJURY, WITHOUT MENTION OF OPEN INTRACRANIAL 10/20/2014 Samm Barba DO Final E888.9 UNSPECIFIED FALL 06/18/2015 Jade LAST, Harvey Castorena F10.20 ALCOHOL DEPENDENCE, UNCOMPLICATED 06/18/2015 Jade LAST, Harvey Castorena F41.9 ANXIETY DISORDER, UNSPECIFIED 06/18/2015 Harvey Hanesn MD K27.5 CHRONIC OR UNSP PEPTIC ULCER, SITE UNSP, WITH PERF 06/18/2015 Harvey Hansen MD R10.30 LOWER ABDOMINAL PAIN, UNSPECIFIED 06/18/2015 Harvey Hansen MD T39.395A ADVERSE EFFECT OF NONSTEROIDAL ANTI-INFLAMMATORY D 06/18/2015 Harvey Hansen MD Z79.1 JAIL (CURRENT) USE OF NON-STEROIDAL NON-INFLA 05/13/2018 Raffaele Stewart Reason K08.89 Other specified disorders of teeth and supporting structures 05/13/2018 Raffaele Stewart Final R51 Headache Procedures There is no data. Results Test Result Range CBC W/DIFF - 06/17/15 17:12 EOSINOPHIL # 0.2 k/cumm 0.1-0.5 EOSINOPHIL % 2 % 2-4 GRANULOCYTE # 7.8 k/cumm 2.0-9.0 GRANULOCYTE % 80 % 50-75 LYMPHOCYTE # 1.4 k/cumm 1.0-4.0 LYMPHOCYTE % 14 % 20-30 MEAN CELL HGB 32.4 pg 27.0-33.0 MEAN CELL HGB CONCENTRATION 32.7 g/dL 32.0-37.0 MEAN CELL VOLUME 99.0 fl 80.0-100.0 MONOCYTE # 0.4 k/cumm 0.1-1.0 MONOCYTE % 4 % 4-6 RED BLOOD CELL 3.95 m/cumm 4.00-6.00 RED CELL DISTRIBUTION WIDTH 13.4 % 11.0-15.6 WHITE BLOOD CELL 9.8 k/cumm 5.0-10.0 HEMOGLOBIN 12.8 gm/dL 14.0-18.0 HEMATOCRIT 39.1 % 40.0-54.0 PLATELET COUNT 266 k/cumm 150-400 ALCOHOL (ETHANOL) SERUM - 06/17/15 17:12 ALCOHOL (ETHANOL) SERUM 117 mg/dL < 10 HEPATIC FUNCTION PANEL - 06/17/15 17:12 BILI UNCONJUGATED 0.0 mg/dL 0.0-0.7 AST/SGOT 25 Units/L 10-37 ALT/SGPT 31 Units/L < 66 TOTAL PROTEIN 6.4 gm/dL 6.4-8.2 ALBUMIN 3.6 gm/dL 3.4-5.0 BILI TOTAL 0.1 mg/dL 0.0-1.0 ALKALINE PHOSPHATASE TOTAL 98 IU/L 45-117 BILI CONJUGATED < 0.1 mg/dL 0.0-0.3 MAGNESIUM - 06/17/15 17:12 MAGNESIUM 2.1 mg/dL 1.8-2.4 LIPASE - 06/17/15 17:12 LIPASE 225 Units/L 73-393 CHEM/HEM PROFILE-BEDSIDE - 06/17/15 17:19 POTASSIUM 4.0 mmol/L 3.5-5.3 METHOD Bedside ANION GAP 20 mmol/L 10-20 METHOD Bedside GLUCOSE 163 mg/dL 70-99 BLOOD UREA NITROGEN 27 mg/dL 7-20 CREATININE 1.4 mg/dL 0.7-1.3 HEMOGLOBIN 12.6 gm/dL 14.0-18.0 HEMATOCRIT 37.0 % 40.0-54.0 SODIUM 143 mmol/L 135-148 CHLORIDE 106 mmol/L 98-110 CARBON DIOXIDE 23 mmol/L 21-32 CALCIUM IONIZED 5.1 mg/dL 4.5-5.3 URINALYSIS, ROUTINE - 06/17/15 19:15 UA LEUKOCYTE ESTERASE DIPSTICK NEGATIVE NEGATIVE UA NITRITE DIPSTICK NEGATIVE NEGATIVE UA PROTEIN DIPSTICK NEGATIVE NEGATIVE UA GLUCOSE DIPSTICK NEGATIVE NEGATIVE UA KETONE DIPSTICK NEGATIVE NEGATIVE UA UROBILINOGEN DIPSTICK NORMAL NORMAL UA BILIRUBIN DIPSTICK NEGATIVE NEGATIVE UA BLOOD DIPSTICK NEGATIVE NEGATIVE UA SPECIFIC GRAVITY 1.025 1.015-1.025 UR PH 5.5 5.0-7.0 UR DRUGS OF ABUSE SCREEN - 06/17/15 19:15 UR AMPHETAMINES SCREEN NEG (<1000 ng/mL) NEGATIVE UR BARBITURATE SCREEN NEG (< 200 ng/mL) NEGATIVE DRUGS OF ABUSE SCREEN COMMENT UR OPIATES SCREEN POS (> 300 ng/mL) NEGATIVE UR PHENCYCLIDINE (PCP) SCREEN NEG (< 25 ng/mL) NEGATIVE UR CANNABINOIDS (THC) SCREEN POS (> 50 ng/mL) NEGATIVE UR COCAINE METABOLITE SCREEN NEG (< 300 ng/mL) NEGATIVE UR METHADONE SCREEN NEG (< 300 ng/mL) NEGATIVE UR BENZODIAZEPINE SCREEN NEG (< 200 ng/mL) NEGATIVE URINALYSIS, ROUTINE - 06/18/15 13:16 UA LEUKOCYTE ESTERASE DIPSTICK TRACE NEGATIVE UA NITRITE DIPSTICK NEGATIVE NEGATIVE UA PROTEIN DIPSTICK 1+ NEGATIVE UA GLUCOSE DIPSTICK NEGATIVE NEGATIVE UA KETONE DIPSTICK NEGATIVE NEGATIVE UA UROBILINOGEN DIPSTICK NORMAL NORMAL UA BILIRUBIN DIPSTICK 1+ NEGATIVE UA BLOOD DIPSTICK NEGATIVE NEGATIVE UA SPECIFIC GRAVITY 1.010 1.015-1.025 UR PH 7.0 5.0-7.0 UA MICROSCOPIC - 06/18/15 13:16 UA BACTERIA 1+ NEGATIVE UA EPITHELIAL CELLS 1+ epi/hpf 0 - 1+ UA MUCUS 3+ NEG TO 1+ UA RBC 3-5 rbc/hpf 0 - 3 UA VOLUME FOR EXAM 12.0 mL (12mL STD) UA WBC 5-10 wbc/hpf 0 - 5 CBC W/DIFF - 06/18/15 13:20 EOSINOPHIL # 0.1 k/cumm 0.1-0.5 EOSINOPHIL % 1 % 2-4 GRANULOCYTE # 8.9 k/cumm 2.0-9.0 GRANULOCYTE % 82 % 50-75 LYMPHOCYTE # 1.1 k/cumm 1.0-4.0 LYMPHOCYTE % 10 % 20-30 MEAN CELL HGB 33.3 pg 27.0-33.0 MEAN CELL HGB CONCENTRATION 33.8 g/dL 32.0-37.0 MEAN CELL VOLUME 98.7 fl 80.0-100.0 MONOCYTE # 0.8 k/cumm 0.1-1.0 MONOCYTE % 8 % 4-6 RED BLOOD CELL 3.90 m/cumm 4.00-6.00 RED CELL DISTRIBUTION WIDTH 13.5 % 11.0-15.6 WHITE BLOOD CELL 10.9 k/cumm 5.0-10.0 HEMOGLOBIN 13.0 gm/dL 14.0-18.0 HEMATOCRIT 38.5 % 40.0-54.0 PLATELET COUNT 243 k/cumm 150-450 METABOLIC PANEL, COMPREHN - 06/18/15 13:20 POTASSIUM 3.4 mmol/L 3.5-5.3 EST GFR (MDRD) > 60 mL/min > 59 ANION GAP 7 mmol/L 5-15 EST CrCl (CG) > 60 mL/min > 59 GLUCOSE 100 mg/dL 70-99 CALCIUM 8.8 mg/dL 8.5-10.1 BLOOD UREA NITROGEN 19 mg/dL 7-20 CREATININE 0.9 mg/dL 0.7-1.3 SODIUM 137 mmol/L 135-148 CHLORIDE 105 mmol/L 98-110 AST/SGOT 16 Units/L 10-37 ALT/SGPT 25 Units/L < 66 CARBON DIOXIDE 25 mmol/L 21-32 TOTAL PROTEIN 6.7 gm/dL 6.4-8.2 ALBUMIN 3.4 gm/dL 3.4-5.0 BILI TOTAL 0.7 mg/dL 0.0-1.0 ALKALINE PHOSPHATASE TOTAL 80 IU/L 45-117 LIPASE - 06/18/15 13:20 LIPASE 135 Units/L 73-393 MAGNESIUM - 06/19/15 04:57 MAGNESIUM 2.2 mg/dL 1.8-2.4 CBC - 06/19/15 09:59 MEAN CELL HGB 33.2 pg 27.0-33.0 MEAN CELL HGB CONCENTRATION 33.7 g/dL 32.0-37.0 MEAN CELL VOLUME 98.4 fl 80.0-100.0 RED BLOOD CELL 3.80 m/cumm 4.00-6.00 RED CELL DISTRIBUTION WIDTH 13.3 % 11.0-15.6 WHITE BLOOD CELL 7.5 k/cumm 5.0-10.0 HEMOGLOBIN 12.6 gm/dL 14.0-18.0 HEMATOCRIT 37.4 % 40.0-54.0 PLATELET COUNT 225 k/cumm 150-400 RENAL FUNCTION PANEL - 06/19/15 09:59 POTASSIUM 3.8 mmol/L 3.5-5.3 EST GFR (MDRD) > 60 mL/min > 59 ANION GAP 5 mmol/L 5-15 EST CrCl (CG) > 60 mL/min > 59 GLUCOSE 99 mg/dL 70-99 CALCIUM 8.5 mg/dL 8.5-10.1 BLOOD UREA NITROGEN 17 mg/dL 7-20 CREATININE 1.0 mg/dL 0.7-1.3 SODIUM 140 mmol/L 135-148 CHLORIDE 106 mmol/L 98-110 CARBON DIOXIDE 29 mmol/L 21-32 ALBUMIN 3.3 gm/dL 3.4-5.0 PHOSPHORUS 2.1 mg/dL 2.5-4.9 CBC - 06/20/15 05:45 MEAN CELL HGB 32.5 pg 27.0-33.0 MEAN CELL HGB CONCENTRATION 33.4 g/dL 32.0-37.0 MEAN CELL VOLUME 97.2 fl 80.0-100.0 RED BLOOD CELL 3.57 m/cumm 4.00-6.00 RED CELL DISTRIBUTION WIDTH 13.0 % 11.0-15.6 WHITE BLOOD CELL 6.5 k/cumm 5.0-10.0 HEMOGLOBIN 11.6 gm/dL 14.0-18.0 HEMATOCRIT 34.7 % 40.0-54.0 PLATELET COUNT 216 k/cumm 150-400 RENAL FUNCTION PANEL - 06/20/15 05:45 POTASSIUM 3.9 mmol/L 3.5-5.3 EST GFR (MDRD) > 60 mL/min > 59 ANION GAP 9 mmol/L 5-15 EST CrCl (CG) > 60 mL/min > 59 GLUCOSE 96 mg/dL 70-99 CALCIUM 8.1 mg/dL 8.5-10.1 BLOOD UREA NITROGEN 9 mg/dL 7-20 CREATININE 1.0 mg/dL 0.7-1.3 SODIUM 142 mmol/L 135-148 CHLORIDE 106 mmol/L 98-110 CARBON DIOXIDE 27 mmol/L 21-32 ALBUMIN 2.9 gm/dL 3.4-5.0 PHOSPHORUS 3.1 mg/dL 2.5-4.9 MAGNESIUM - 06/20/15 05:45 MAGNESIUM 2.3 mg/dL 1.8-2.4 CBC - 06/21/15 05:30 MEAN CELL HGB 32.7 pg 27.0-33.0 MEAN CELL HGB CONCENTRATION 33.8 g/dL 32.0-37.0 MEAN CELL VOLUME 96.7 fl 80.0-100.0 RED BLOOD CELL 3.64 m/cumm 4.00-6.00 RED CELL DISTRIBUTION WIDTH 12.8 % 11.0-15.6 WHITE BLOOD CELL 8.0 k/cumm 5.0-10.0 HEMOGLOBIN 11.9 gm/dL 14.0-18.0 HEMATOCRIT 35.2 % 40.0-54.0 PLATELET COUNT 256 k/cumm 150-400 RENAL FUNCTION PANEL - 06/21/15 05:30 POTASSIUM 3.6 mmol/L 3.5-5.3 EST GFR (MDRD) > 60 mL/min > 59 ANION GAP 10 mmol/L 5-15 EST CrCl (CG) > 60 mL/min > 59 GLUCOSE 97 mg/dL 70-99 CALCIUM 8.3 mg/dL 8.5-10.1 BLOOD UREA NITROGEN 5 mg/dL 7-20 CREATININE 1.0 mg/dL 0.7-1.3 SODIUM 141 mmol/L 135-148 CHLORIDE 104 mmol/L 98-110 CARBON DIOXIDE 27 mmol/L 21-32 ALBUMIN 2.9 gm/dL 3.4-5.0 PHOSPHORUS 3.0 mg/dL 2.5-4.9 MAGNESIUM - 06/21/15 05:30 MAGNESIUM 2.0 mg/dL 1.8-2.4 CBC - 06/22/15 05:54 MEAN CELL HGB 32.4 pg 27.0-33.0 MEAN CELL HGB CONCENTRATION 33.6 g/dL 32.0-37.0 MEAN CELL VOLUME 96.5 fl 80.0-100.0 RED BLOOD CELL 3.67 m/cumm 4.00-6.00 RED CELL DISTRIBUTION WIDTH 12.7 % 11.0-15.6 WHITE BLOOD CELL 6.4 k/cumm 5.0-10.0 HEMOGLOBIN 11.9 gm/dL 14.0-18.0 HEMATOCRIT 35.4 % 40.0-54.0 PLATELET COUNT 268 k/cumm 150-400 RENAL FUNCTION PANEL - 06/22/15 05:54 POTASSIUM 4.1 mmol/L 3.5-5.3 EST GFR (MDRD) > 60 mL/min > 59 ANION GAP 8 mmol/L 5-15 EST CrCl (CG) > 60 mL/min > 59 GLUCOSE 90 mg/dL 70-99 CALCIUM 8.4 mg/dL 8.5-10.1 BLOOD UREA NITROGEN 6 mg/dL 7-20 CREATININE 0.9 mg/dL 0.7-1.3 SODIUM 142 mmol/L 135-148 CHLORIDE 106 mmol/L 98-110 CARBON DIOXIDE 28 mmol/L 21-32 ALBUMIN 2.8 gm/dL 3.4-5.0 PHOSPHORUS 3.3 mg/dL 2.5-4.9 MAGNESIUM - 06/22/15 05:54 MAGNESIUM 2.2 mg/dL 1.8-2.4 METABOLIC PANEL, COMPREHN - 05/10/18 18:39 POTASSIUM 3.4 mmol/L 3.5-5.3 EST GFR (MDRD) > 60 mL/min > 59 ANION GAP 13 mmol/L 5-15 EST CrCl (CG) > 60 mL/min > 59 GLUCOSE 106 mg/dL 70-99 CALCIUM 8.6 mg/dL 8.5-10.1 BLOOD UREA NITROGEN 26 mg/dL 7-20 CREATININE 1.3 mg/dL 0.7-1.3 SODIUM 140 mmol/L 135-148 CHLORIDE 104 mmol/L 98-110 AST/SGOT 32 Units/L 10-37 ALT/SGPT 27 Units/L < 66 CARBON DIOXIDE 23 mmol/L 21-32 TOTAL PROTEIN 6.6 gm/dL 6.4-8.2 ALBUMIN 3.6 gm/dL 3.4-5.0 BILI TOTAL 0.3 mg/dL 0.0-1.0 ALKALINE PHOSPHATASE TOTAL 70 IU/L 45-117 LIPASE - 05/10/18 18:39 LIPASE 122 Units/L 73-393 ALCOHOL (ETHANOL) SERUM - 05/10/18 18:39 ALCOHOL (ETHANOL) SERUM 155 mg/dL < 10 Radiology Report from [facility] on 06/17/2015 19:09:00 DIAGNOSTIC IMAGING REPORT [facility] - [address] [address] PHONE #: [phone] FAX #: [phone] ------- Name: TERRI TOMAS Loc: [facility] Radiology No: : 1984 Age: 29 Sex: M Status: REG ER Unit No: [id number] Phys: Theresa Rivera Acct: [id number] Reason For Exam: epi and ruq pain ,etoh Exam Date: 06/17/2015 EXAMS: CPT CODE: [id number] [place] [id number] REASON FOR EXAM: Epigastric and right upper quadrant abdominal pain. Lipase 225 COMPARISON: None. TECHNIQUE: Routine ultrasound and color-flow images of the liver/gallbladder were obtained. FINDINGS: The liver is normal in size and shape. The liver echogenicity is within normal limits. Small amount of free fluid is visualized in the perihepatic space (image 30). There are no focal lesions. No intrahepatic biliary dilatation is present. The common bile duct is not dilated and measures 3 mm. There is no evidence of cholelithiasis or gallbladder wall thickening or pericholecystic fluid. Sonographic Gómez's sign is negative. The visualized portions of the head and proximal body of the pancreas are within normal limits. The distal body and tail of the pancreas are not well visualized due to overlying bowel gas. The visualized portions of the IVC and aorta are normal. The right kidney measures approximately 10.9 cm in length and has a normal appearance. IMPRESSION: 1. No cholelithiasis or acute cholecystitis. No liver or gallbladder abnormality detected. 2. Small amount of perihepatic free fluid. Findings were discussed with Dr. Pastrana 06/17/2015 6:41 PM approximately. I have personally reviewed these images and approved and/or corrected the resident physician's interpretation. at [id number] RESIDENT: SRIKANTH PLASENCIA MD Reported and signed by: MARCELLO ROCHA MD PAGE 1 Signed Report (CONTINUED) DIAGNOSTIC IMAGING REPORT [facility] - [address] [place] [address] PHONE #: [phone] FAX #: [phone] ------- Name: TERRI TOMAS Loc: [facility] Radiology No: : 1984 Age: 29 Sex: M Status: REG ER Unit No: [id number] Phys: Theresa Rivera Acct: [id number] Reason For Exam: epi and ruq pain ,etoh Exam Date: 06/17/2015 EXAMS: CPT CODE: [id number] [place] [id number] <Continued> CC: Technologist: KEILA MATAMOROS Transcribed Date/Time: 06/17/2015 ( 1902)Director Plans: RIGO Printed Date/Time: (1908) BATCH NO: N/A PAGE 2 Signed Report Radiology Report from [facility] on 06/18/2015 15:11:00 DIAGNOSTIC IMAGING REPORT [facility] - [address] [place] [address] PHONE #: [phone] FAX #: [phone] ------- Name: TERRI TOMAS Loc: [facility] Radiology No: : 1984 Age: 29 Sex: M Status: REG ER Unit No: [id number] Phys: Christiano Kraft DO Acct: [id number] Reason For Exam: b/l lq pain Exam Date: 06/18/2015 EXAMS: CPT CODE: [id number] CT ABD/PELVIS WITH CONTRAST 09181 REASON FOR EXAM: Bilateral lower quadrant pain. TIME OF EXAM: 06/18/2015 2:21 PM COMPARISON: Right upper quadrant sonogram on 06/17/2015. TECHNIQUE: Routine helical contrast-enhanced CT images were obtained through the abdomen and pelvis. Postprocessed coronal and sagittal reformats were reviewed. FINDINGS: Included Lung Bases: There is no consolidation or acute abnormality. CT Abdomen: There is a small amount of extraluminal air with inflammatory changes and free fluid adjacent to the second/third duodenum. A small air-fluid level is noted in the adjacent to the duodenum measuring 2.4 x 1.9 cm (image 33, series 2). The duodenum demonstrates irregularity along the second portion. The gallbladder demonstrates hyperemia and wall thickening. The small bowel loops are nondilated. There are several nondistended fluid-filled small bowel loops in the left abdomen and pelvis with associated hyperemia of the bowel wall. There is reactive hyperemia and wall thickening of the proximal ascending and proximal transverse colon. The appendix is normal. The liver, spleen, kidneys, adrenal glands, and pancreas all have a normal appearance. There is no mesenteric or retroperitoneal adenopathy. No focal bony abnormality is seen. CT Pelvis: Ureters and bladder are grossly normal. A small amount of free fluid is noted in the pelvis. There is no free air, loculated collection, or adenopathy in the pelvis. The osseous and soft tissue structures are age appropriate. IMPRESSION : 1. Small collection of fluid and extraluminal air with surrounding inflammatory changes adjacent to the second/third portion of the duodenum, which is highly concerning for a duodenal perforation. 2. Hyperemia and wall thickening of the gallbladder, which is likely reactive in nature given the normal-appearing gallbladder on the sonogram of the prior day. If there is continued clinical concern, recommend repeat right upper quadrant sonogram for further evaluation. PAGE 1 Signed Report (CONTINUED) DIAGNOSTIC IMAGING REPORT [facility] - [address] [address] PHONE #: [phone] FAX #: [phone] Name: TERRI TOMAS [facility] Rad[facility] No: : 1985 Age: 29 Sex: M Status: REG ER Unit No: [id number] Phys: Christiano Kraft DO Acct: [id number] Reason For Exam: gaby for Exam: b/l lq pain Exam Date: 2014 --- EXAMS: CPT CODE: [id number] CT ABD/PELVIS WITH CONTRAST [id number] < Continued> 3. Several nondistended fluid-filled small bowel loops in left abdomen and pelvis with associated hyperemia, which may related to intra-abdominal inflammatory changes or gastroenteritis. 4. Reactive hyperemia and wall thickening of the proximal ascending and proximal transverse colon. 5. Normal appendix. Exam discussed with Christiano Munoz DO at 06/18/2015 2:30 PM. I have personally reviewed these images and corrected the resident physician's interpretation if necessary. Electronically Signed by VICKY GALLO MD on at 2458 RESIDENT: YENIFER WILDE MD Reported and signed by: VICKY GALLO MD CC: Christiano Munoz DO Technologist: GEORGE LINDSEY Transcribed Date/Time: 2014 (5772)Director Plans: CHAN Printed Date/ Time: 06/18/2015 (0685) BATCH NO: N/A PAGE 2 Signed Report [facility] 06/21/2015 10:31:00 DIAGNOSTIC IMAGING REPORT [facility] - [address] [address] PHONE #: [phone] FAX #: [phone] ------- Name: TERRI TOMAS Loc: [id number] Radiology No: : 1984 Age: 29 Sex: M Status: ADM IN Unit No: [id number] [facility] Marcello Huntley MD R5 Acct: [id number] Reason For Exam: concern for duodenal leak Exam Date: 06/21/2015 EXAMS: CPT CODE: [id number] [place] [address] REASON FOR EXAM: concern for duodenal leak. TIME OF EXAM: 06/21/2015 10:10 AM COMPARISON: CT from 06-18-15 TECHNIQUE: Single contrast fluoroscopic view of the upper GI tract. FINDINGS: The pulping machine operator film demonstrates no acute abnormality. The patient was initially given Isovue contrast orally and displayed a normal swallowing mechanism. Esophageal motility appears normal. No hiatal hernia is identified during the examination. Mild reflux was seen. Prominent gastric folds are noted, particularly at the antrum. The 1st and 2nd portions of the duodenum appear narrowed, with thick folds as well. Contrast passed through without difficulty. No leak was identified. The exam was also performed using thin barium after consulting with the ordering provider. The findings were identical. Fluoroscopy Time: 4 minutes and 16 seconds IMPRESSION: 1. No leak identified. 2. Fold thickening and narrowing of the proximal duodenum, consistent with duodenitis. 3. Thick gastric folds, consistent with gastritis. 4. Mild reflux. Exam discussed with Marcello Huntley MD R5 on 06/21/2015 945 AM. I have personally reviewed these images and confirmed or corrected the resident physician's interpretation. at 1026 RESIDENT: KARINA YI MD Reported and signed by : CAROLE LYLE MD PAGE 1 Signed Report (CONTINUED) DIAGNOSTIC IMAGING REPORT [facility] - [address] [place] [address] PHONE #: [phone] FAX #: [phone] Name: TERRI TOMAS Loc: [id number] 1 Radiology No: : 1985 Age: 29 Sex: M Status: ADM IN Unit No: [id number] Phys: Marcello Allen MD R5 Acct: [id number] Reason For Exam: concern for duodenal leak Exam Date: 2014 --- EXAMS: CPT CODE: [id number] UPPER GI 03762 < Continued> CC: Harvey Hansen MD Technologist: YARA LYONS; STUDENT JANI RAYA Transcribed Date/Time: 06/21/2015 (1026)Director Plans: [id number] Printed Date/Time: 06/21/2015 (1031) BATCH NO : N/A PAGE 2 Signed Report Radiology Report from [facility] on 03/05/2018 21:28:00 PATIENT NAME: TERRI TOMAS UNIT NO: [id number] EXAMS: CPT CODE: [id number] XR ANKLE 3 V LT [address]0917 PROCEDURE: - XR ANKLE 3 V LT TIME OF EXAM: 03/05/2018 9:15 PM REASON FOR EXAM: pain/swelling s/p eversion injury COMPARISON: None. FINDINGS: 3 views of the left ankle show no fractures, dislocations, or other acute bony abnormalities identified. Chronic-appearing enthesophytes are seen of the talus. A small joint effusion is seen. The joint spaces are well maintained throughout. The soft tissues appear mildly edematous. No radiopaque foreign bodies are identified. IMPRESSION: 1. No acute fractures or dislocations of the left ankle. 2. Small joint effusion. Electronically Signed by JAVIER JAEGER MD on 2017 at 2123 Reported and signed by: JAVIER JAEGER MD CC: TECHNOLOGIST: GEORGE LINDSEY TRANSCRIBED DATE/Time: 03/05/20182122 BY: CAM EXAM COMPLETE DATE/TIME: [id number] D/TM:03/05/2018 (2127) [facility] NAME: TERRI TOMAS [address] HP: [phone] AGE: 32 S:[place], [place] [address] : 1985 LOC: W.[facility]W PHYS: Beatriz Snell PHONE #: [phone] EXAM DATE: 03/05/2018 STATUS: REG ER FAX #: [phone] A#: [id number] U#: [id number] PAGE 1 Signed Report *Final Page* Radiology Report from [facility] on 03/05/2018 21:29:00 PATIENT NAME: TERRI TOMAS UNIT NO: [id number] EXAMS: CPT CODE: [id number] XR FOOT LEFT 91529 PROCEDURE: - XR FOOT LEFT TIME OF EXAM: 03/05/2018 9:15 PM REASON FOR EXAM: lateral pain s/p eversion injury COMPARISON: None. FINDINGS: 3 views of the left foot show no fractures, dislocations, or other acute bony abnormalities identified. The joint spaces are well maintained throughout. The soft tissues appear unremarkable. No radiopaque foreign bodies are identified. IMPRESSION: No acute fractures or dislocations of the left foot. at 2123 Reported and signed by: JAVIER JAEGER MD CC: TECHNOLOGIST: GEORGE LINDSEY TRANSCRIBED DATE/Time: 03/05/20182122 BY: [email or web address] EXAM COMPLETE DATE/TIME: [id number] D/TM:03/05/2018 (2128) [facility] NAME: TERRI TOMAS [address] HP: [phone] AGE: 32 [address], [place] [address] : 1985 LOC: [facility] PHYS: Beatriz Snell PHONE #: [phone] EXAM DATE: 03/05/2018 STATUS: REG ER FAX #: [phone] A#: [id number] U#: [id number] PAGE 1 Signed Report *Final Page* Encounters ACCT No. Visit Date/Time Discharge Status Pt. Type Provider Facility Loc./Unit Complaint [id number] 05/10/2018 17:11:00 05/10/2018 17:35:00 DIS Emergency Raffaele Stewart [facility] dental pain, ARAUJO [id number] 10/15/2014 11:42:00 10/15/2014 18:30:00 DIS Emergency Raffaele Stewart [facility] overdose [id number] 10/11/2014 21:54:00 10/12/2014 17:57:00 DIS Inpatient Samm Barba DO [facility] F3SI SDH, pneumocephalus, etoh abuse, etoh intox [id number] 06/23/2015 11:23:20 Document Registration [id number] 06/23/2015 11:17:41 Document Registration [id number] 06/23/2015 11:11:48 Document Registration [id number] 05/10/2018 18:11:00 05/10/2018 20:52:00 DIS Emergency Veronica LAST, Rahat Mei [facility] W.EDW [id number] 03/05/2018 20:36:00 03/05/2018 21:27:00 DIS Emergency [facility], Mande[facility] W.EDW [id number] 02/05/2018 16:04:00 02/05/2018 17:12:00 DIS Emergency Gaby DO, [facility] W.EDW [id number] 11/24/2016 13:07:00 11/24/2016 13:36:00 DIS Emergency Delano Michel DO [facility] W.EDW [id number] 06/18/2015 15:22:00 06/22/2015 16:21:00 DIS Inpatient Jade LAST, Harvey [facility] W.8TS [id number] 06/17/2015 16:50:00 06/17/2015 23:38:00 DIS Emergency Zeina LAST, [facility] W.ASHLEY [id number] 05/29/2015 19:08:00 05/29/2015 20:57:00 DIS Emergency Luisa LAST, [facility] W.EDW [id number] 05/06/2015 07:42:00 05/06/2015 08:02:00 DIS Emergency Yamini LAST, Melissa [facility]win [facility].EDW [id number] 12/10/2014 19:44:00 12/10/2014 20:48:00 DIS Emergency Dario LAST, Earnest Zimmerman [facility].EDW [id number] 06/12/2015 14:33:00 Document Registration [id number] 09/21/2013 03:32:00 09/21/2013 04:45:00 DIS Emergency [id number] 07/24/2013 20:41:00 07/24/2013 22:37:00 DIS Emergency [id number] 07/09/2013 11:01:00 07/09/2013 23:59:59 CLS Outpatient [id number] 10/02/2012 08:05:00 10/02/2012 23:59:59 CLS Outpatient
== END 2019-01-08 11:10 | disposition home or self-care (01) ==
LOC: EDUNIT# 10:50 → ER 10:51
DX: K08.89 Other specified disorders of teeth and supporting structures (principal); F41.9 Anxiety disorder, unspecified
CPT/HCPCS: 99282